=== PATIENT | female | born 1955 | race Caucasian/White ===

== ENCOUNTER 2018-12-21 19:35 | Emergency (ER) | payer MEDICARE ==
[2018-12-21 19:40] VITALS: RESP 18
--- NOTE | 2018-12-21 20:33 | ED ---
Skin/Abscess/FB HPI - General Chief complaint: Skin/Abscess/Foreign Body Stated complaint: Wound drainage Time Seen by Provider: 12/21/18 19:46 Source: patient, RN notes reviewed, old records reviewed Mode of arrival: ambulatory Limitations: no limitations - History of Present Illness Initial comments: This patient's a 63-year-old female presents she presents emergency department today for some irritation over a wound of her right groin. Patient reports that she had multiple lymph nodes removed in her abdomen, and also had applications with having bleeding capillaries over this wound as back in March. She reports that she had a vascular surgeon cauterize this and had a wound VAC. She states that she's been healing well with her wound since March. Patient states that she took from around today noticed some redness and minor drainage on the site today. She denies a significant pain. Patient reports that she was quite active. - Related Data Home Medications Medication Instructions Recorded Confirmed DULoxetine HCL 80 mg PO DAILY 12/21/18 12/21/18 Gabapentin [Neurontin] 300 mg PO TID 12/21/18 12/21/18 Lisinopril 20 mg PO DAILY 12/21/18 12/21/18 Meclizine [Antivert] 25 mg PO TID PRN 12/21/18 12/21/18 Oxybutynin Chloride [Ditropan XL] 5 mg PO HS 12/21/18 12/21/18 Prochlorperazine [Compazine] 10 mg PO Q6H PRN 12/21/18 12/21/18 metFORMIN HCL [Glucophage] 500 mg PO DAILY 12/21/18 12/21/18 Previous Rx's Medication Instructions Recorded Mupirocin 2% Oint [Bactroban 2% 1 applic TOPICAL TID #60 gm 12/21/18 Oint] Allergies Allergy/AdvReac Type Severity Reaction Status Date / Time No Known Allergies Allergy Verified 12/21/18 20:35 Review of Systems ROS Statement: Those systems with pertinent positive or pertinent negative responses have been documented in the HPI. ROS Other: All systems not noted in ROS Statement are negative. Past Medical History Past Medical History: Cancer, Diabetes Mellitus, Hypertension History of Any Multi-Drug Resistant Organisms: None Reported Past Surgical History: Hysterectomy, Joint Replacement Additional Past Surgical History / Comment(s): lumph node and buttock tumor removed,vascular repair, jeni knee replacement Past Psychological History: Anxiety, Depression Smoking Status: Never smoker Past Alcohol Use History: None Reported Past Drug Use History: None Reported General Exam - General Exam Comments Initial Comments: This is a 63-year-old female. Alert and oriented. No distress. Limitations: no limitations General appearance: alert, in no apparent distress Head exam: Present: atraumatic, normocephalic, normal inspection Eye exam: Present: normal appearance, PERRL, EOMI. Absent: scleral icterus, conjunctival injection, periorbital swelling ENT exam: Present: normal exam, mucous membranes moist Neck exam: Present: normal inspection. Absent: tenderness, meningismus, lymphadenopathy Respiratory exam: Present: normal lung sounds bilaterally. Absent: respiratory distress, wheezes, rales, rhonchi, stridor Cardiovascular Exam: Present: regular rate, normal rhythm, normal heart sounds. Absent: systolic murmur, diastolic murmur, rubs, gallop, clicks GI/Abdominal exam: Present: soft, normal bowel sounds, other (Patient has a well-appearing wound over the right groin multiple scars. There is evidence of some irritation, abrasion over the wound with some erythema. No sialitis. No fluid collection. Bleeding stopped. There is some minor blood spots on her underwear.). Absent: distended, tenderness, guarding, rebound, rigid Extremities exam: Present: normal inspection, full ROM, normal capillary refill. Absent: tenderness, pedal edema, joint swelling, calf tenderness Back exam: Present: normal inspection Neurological exam: Present: alert, oriented X3, CN II-XII intact Psychiatric exam: Present: normal affect, normal mood Skin exam: Present: warm, dry, intact, normal color. Absent: rash Course Vital Signs 12/21/18 19:36 Temperature 98.8 F Pulse Rate 75 Respiratory 18 Rate Blood Pressure 138/80 O2 Sat by Pulse 98 Oximetry Medical Decision Making - Medical Decision Making This is a 63-year-old female. She presents today for concerns for irritation over her wound in her right groin. She had surgery and, patient's bleeding back in generally. At this time she has some minor erythema, likely rubbed in a brace the skin over the scar. Patient reports she tries keep area dry. This is within her abdominal and groin fold. It does appear that skin just irritated and agrees. No abscess or infection at this time. Discussed putting a thin film of antibiotic ointment and keeping the area clean and dry. She is given intra-dry to keep this area clean. I discussed monitoring for any worsening infection she can follow-up with her primary care doctor. All questions were answered. Disposition Clinical Impression: Visit for wound check, Abrasion Disposition: HOME SELF-CARE Condition: Good Instructions (If sedation given, give patient instructions): Abrasion (ED) Additional Instructions: Patient is advised to keep area clean and dry. Apply thin film of antibiotic ointment over the areas well. Monitor for is any further significant bleeding please return for recheck. Prescriptions: Mupirocin 2% Oint [Bactroban 2% Oint] 1 applic TOPICAL TID #60 gm Is patient prescribed a controlled substance at d/c from ED?: No Referrals: Sanchez Belle MD [Primary Care Provider] - 1-2 days Time of Disposition: 20:32
[2018-12-21 21:26] VITALS: BP 130/75; PULSE 70; TEMP 98
== END 2018-12-21 21:27 | disposition home or self-care (01) ==
LOC: EC 19:35
DX: Z48.00 Encounter for change or removal of nonsurgical wound dressing (principal); S30.811A Abrasion of abdominal wall, initial encounter; E11.9 Type 2 diabetes mellitus without complications; I10 Essential (primary) hypertension; F41.9 Anxiety disorder, unspecified; F32.9 Major depressive disorder, single episode, unspecified; Z79.84 Long term (current) use of oral hypoglycemic drugs; Z79.899 Other long term (current) drug therapy; Z96.653 Presence of artificial knee joint, bilateral
CPT/HCPCS: 99283

== ENCOUNTER → 2020-06-23 | Outpatient (CLI) | payer MEDICARE | END | disposition home or self-care (01) | LOC: LABWHC1 09:55 | PROVIDERS: ATTEND Student in an Organized Health Care Education/Training Program | DX: Z20.822 Contact with and (suspected) exposure to COVID-19 (principal) | CPT/HCPCS: U0003; U0005 ==

== ENCOUNTER 2020-06-30 08:01 | Day surgery (SDC) | payer MEDICARE ==
[2020-06-28 10:06] VITALS: BMI 29.4
[~2020-06-30 08:01] MED LIST: LACTATED RINGERS 1,000 ML IV SCH; LIDOCAINE 1% (10MG/ML) FOR IV START INTRADERMA PRN
[2020-06-30 08:25] VITALS: TEMP 97
[2020-06-30] MEDS ORDERED: ONDANSETRON 4 MG/2 ML VIAL ONE (08:28)
[2020-06-30 08:29] LABS: Glucose,Whole Blood 140 mg/dL (75-99)
[2020-06-30] MEDS ORDERED: ONDANSETRON 4 MG/2 ML VIAL IVP ONE (08:30)
[2020-06-30] MEDS ORDERED: LACTATED RINGERS 1,000 ML IV ONE (08:30)
[2020-06-30] MEDS ORDERED: LIDOCAINE 1% INJ 10MG/ML (20 ML MDV) ONE (09:00)
[2020-06-30] MEDS ORDERED: PROPOFOL 10 MG/ML 20 ML VIAL IV ONE (09:00)
--- NOTE | 2020-06-30 09:21 | P.OP ---
Date of Procedure: 06/30/20 Preoperative Diagnosis: GERD Postoperative Diagnosis: Duodenal ulcer Gastric ulcer Gastritis Procedure(s) Performed: EGD with biopsy Surgeon: Luis Ahumada Condition: stable Disposition: same day Description of Procedure: Patient is brought to the Endo suite underwent sedation per department of anesthesia timeout performed correct patient correct procedure correct site was verified scope was placed through the oropharynx down the esophagus with ease and direct visualization through the stomach and into the first and second portion of the duodenum there was a large duodenal ulcer noted at the sweep, this was 1-1-1/2 cm long. And did create a small stricture however the scope was able to pass past this. The base of the ulcer was clean with no active bleeding. Biopsy was taken. Scope was withdrawn to the antrum biopsy of antrum was taken mild gastritis is noted scope was retroflexed in the body and simms of the stomach were inspected no significant hilar hernia was noted there was a small ulcer noted along the greater curvature biopsy of this was taken. Scope was withdrawn and the GE junction and biopsies were taken to rule out Green's esophagitis scope was then slowly withdrawn through the esophagus no other abnormalities are noted patient tolerated procedure well no apparent complications
[2020-06-30 09:27] VITALS: RESP 18
[2020-06-30 09:42] VITALS: BP 152/80; PULSE 78
== END 2020-06-30 10:21 | disposition home or self-care (01) ==
LOC: ORWHC2ENDO 08:01
PROVIDERS: ATTEND Student in an Organized Health Care Education/Training Program
DX: K21.00 Gastro-esophageal reflux disease with esophagitis, without bleeding (principal); K26.9 Duodenal ulcer, unspecified as acute or chronic, without hemorrhage or perforation; K29.50 Unspecified chronic gastritis without bleeding; K25.9 Gastric ulcer, unspecified as acute or chronic, without hemorrhage or perforation; R13.10 Dysphagia, unspecified; E11.9 Type 2 diabetes mellitus without complications; I10 Essential (primary) hypertension; F41.9 Anxiety disorder, unspecified; Z79.84 Long term (current) use of oral hypoglycemic drugs; Z79.899 Other long term (current) drug therapy; F32.9 Major depressive disorder, single episode, unspecified; Z85.828 Personal history of other malignant neoplasm of skin
CPT/HCPCS: 88305; 43239; J2405; J2001; J2704